=== PATIENT | female | born 1970 | race Caucasian/White ===

== ENCOUNTER 2017-07-24 19:01 | Emergency (ER) | payer SELFPAY ==
[~2017-07-24] VITALS: Ht 160 cm; Wt 72.6 kg
[2017-07-24 19:57] LABS: Urine Bilirubin Negative (Negative); Urine Blood Negative /uL (Negative); Urine Color Yellow (Yellow); Urine Glucose Normal (Normal); Urine Ketone Negative (Negative); Urine Nitrite Negative (Negative); Urine RBC <1 /hpf (0 - 4); Urine Squamous Epithelial Cell FEW /hpf (<5); Urine Urobilinogen Normal (Negative); Urine pH 6.5 (5.0-8.0)
[2017-07-24 22:28] LABS: Basophils # (auto) 0.1 uL; Eosinophils # (auto) 0 uL; Hemoglobin 7.9 g/dL (12.2-16.2); Neutrophils # (auto) 8.2 uL
[2017-07-24 22:46] LABS: Basophils % (auto) 0.6 % (0.0-2.0); Eosinophils % (auto) 0.1 % (0.0-7.0); Hematocrit 25.5 % (36.0-46.0); Lymphocytes # (auto) 1.2 uL; Mean Corpuscular Hgb Conc. 30.9 g/dL (32.0-36.0); Mean Corpuscular Volume 67.9 fL (80.0-100.0); Mean Platelet Volume 7.8 fL (6.9-10.8); Monocytes # (auto) 1.2 uL; Neutrophils % (auto) 77.3 % (37.0-80.0); Platelet Count (auto) 301 10^3/uL (140-450); Red Cell Distribution Width 17.4 % (11.8-14.3); White Blood Cell 10.6 10^3/uL (4.4-10.8)
[2017-07-24 23:07] LABS: Giant Platelets Few; Platelet Estimate Adequate
[2017-07-24 23:09] LABS: Hypochromia Moderate; Microcytosis Marked
[2017-07-24 23:11] LABS: Ovalocytes FEW; Polychromasia Slight; Stomatocytes Few; Tear Drop Cells FEW
[2017-07-24 23:29] LABS: Albumin 3.7 g/dL (3.4-5.0); Calcium 8.4 mg/dL (8.5-10.1); Potassium 3.4 mmol/L (3.5-5.1)
[2017-07-24 23:32] LABS: Bilirubin, Total 0.6 mg/dL (0.2-1.0); Total Protein 7.6 g/dL (6.4-8.2)
[2017-07-24 23:38] LABS: INR 0.98 (0.9-1.15); Partial Thromboplastin Time 29.4 sec (22.64-33.71); Prothrombin Time 10.7 sec (9.37-12.3)
[2017-07-25 01:30] VITALS: BP 100/70
[2017-07-25 01:45] VITALS: BP 108/69
[2017-07-25 02:00] VITALS: BP 105/71
[2017-07-25] MEDS ORDERED: ACETAMINOPHEN 325 MG TAB PO ONE (02:00)
[2017-07-25 02:30] VITALS: BP 105/69
[2017-07-25 02:45] VITALS: BP 102/67
== END 2017-07-25 03:22 | disposition home or self-care (01) ==
LOC: ER 19:05
DX: N39.0 Urinary tract infection, site not specified (principal); D64.9 Anemia, unspecified; E03.9 Hypothyroidism, unspecified
CPT/HCPCS: 36415; 80053; 81001; 81025; 84443; 85025; 85610; 85730; 86850; 86900; 86901; 86920; 93005; 99285; J7030; P9016; 36430